=== PATIENT | female | born 1985 | race Caucasian/White ===

== ENCOUNTER 2019-05-01 23:15 | Emergency (ER) | payer OTHER ==
[~2019-05-01 23:15] MED LIST: PREN1TAB22 PO
== END 2019-05-02 00:30 | disposition left against medical advice (07) ==
LOC: EMS 23:16
DX: K08.89 Other specified disorders of teeth and supporting structures (principal); Z53.21 Procedure and treatment not carried out due to patient leaving prior to being seen by health care provider